=== PATIENT | female | born 1970 | race Caucasian/White ===

== ENCOUNTER 2017-01-11 16:00 | Outpatient (RCR) | payer BC | END 2017-01-15 | disposition home or self-care (01) | LOC: PTY 16:00 | DX: M54.5 Low back pain (principal); M54.2 Cervicalgia; M54.12 Radiculopathy, cervical region; I10 Essential (primary) hypertension; Z88.0 Allergy status to penicillin | CPT/HCPCS: 97110; 97140; 97161; G0283 ==

== ENCOUNTER 2017-01-18 15:45 | Outpatient (RCR) | payer BC | END 2017-02-14 | disposition home or self-care (01) | LOC: PTY 15:45 | DX: M54.5 Low back pain (principal) | CPT/HCPCS: 97110; 97140; G0283 ==

== ENCOUNTER 2017-02-16 15:47 | Outpatient (RCR) | payer BC | END 2017-03-17 | disposition home or self-care (01) | LOC: PTY 15:47 | DX: M54.5 Low back pain (principal) ==

== ENCOUNTER 2017-03-29 15:07 | Outpatient (RCR) | payer BC | END 2017-04-16 | disposition home or self-care (01) | LOC: PTY 15:07 | DX: M54.5 Low back pain (principal) ==